=== PATIENT | male | born 1995 | race Caucasian/White ===

== ENCOUNTER 2018-10-26 19:20 | Emergency (ER) | payer OTHER ==
[~2018-10-26] VITALS: Ht 177.8 cm; Wt 131.5 kg
[2018-10-26 19:35] VITALS: BP_SYST 158
== END 2018-10-26 20:34 | disposition home or self-care (01) ==
LOC: SED 19:20 → MERGE 19:20 → SED 20:34
DX: H66.93 Otitis media, unspecified, bilateral (principal); H10.9 Unspecified conjunctivitis
CPT/HCPCS: 99283